=== PATIENT | female | born 1975 | race Caucasian/White ===

== ENCOUNTER 2016-04-05 05:25 | Day surgery (SDC) | payer OTHER ==
[~2016-04-05] VITALS: Ht 172.7 cm; Wt 105.7 kg
[~2016-04-05 05:25] MED LIST: CALCIUM 600 +1 EAC8 PO; CALCIUM600 M1 PO; LIDOCAINE700 MG TD; MAGNESIUM250 MG PO; PERCOCET 5/31 TABLET PO; PROZAC20 MG PO; SYNTHROID200 MCG PO; SYNTHROID50 MCG PO; VALTREX1000 MG PO; VITAMIN D31000 UNIT PO; VITRON-C TABLE1 EACH PO
[2016-04-05 06:26] VITALS: BP 147/75
[2016-04-05 11:30] VITALS: BP 137/77
[2016-04-05 12:35] VITALS: BP 150/88
== END 2016-04-05 12:53 | disposition home or self-care (01) ==
LOC: SDC 05:25
DX: N92.0 Excessive and frequent menstruation with regular cycle (principal); D25.9 Leiomyoma of uterus, unspecified; N72 Inflammatory disease of cervix uteri; N80.0 Endometriosis of uterus; E03.9 Hypothyroidism, unspecified
CPT/HCPCS: 88307; J0330; J1100; J1170; J1580; J1885; J2250; J2405; J2710; J3010; J7050

== ENCOUNTER → 2017-08-03 | Outpatient (CLI) | payer OTHER | END | disposition home or self-care (01) | LOC: NUC 11:44 | DX: R10.11 Right upper quadrant pain (principal); R94.5 Abnormal results of liver function studies | CPT/HCPCS: 78227; A9537; J2805 ==